=== PATIENT | male | born 1965 | race Asian ===

== ENCOUNTER 2017-10-08 03:31 | Emergency (ER) | payer OTHER ==
[~2017-10-08] VITALS: Ht 165.1 cm; Wt 71.3 kg
[2017-10-08 03:37] VITALS: BP 143/88; Ht 165.1 cm; Wt 71.3 kg
== END 2017-10-08 07:48 | disposition home or self-care (01) ==
LOC: ED 03:31
DX: R04.0 Epistaxis (principal); E78.5 Hyperlipidemia, unspecified; K21.9 Gastro-esophageal reflux disease without esophagitis; Z95.5 Presence of coronary angioplasty implant and graft
CPT/HCPCS: J3490